=== PATIENT | female | born 1965 | race Two or more races ===

== ENCOUNTER → 2020-05-15 | Day surgery (SDC) | payer BC, MEDICARE ==
[~2020-05-15] VITALS: Ht 167.6 cm; Wt 75.7 kg
[~2020-05-15] MED LIST: CELL2 PO; DILT120T13 PO; FERR240T6 PO; HYDR25TA PO; HYDROMORPHONE HCL/PF 2MG/ML CPJ IV PRN; LABETALOL 5MG/ML SYR 20 MG/4 ML SYRINGE IV PRN; LOSA50TA41 PO; MAGN400C PO; MEPERIDINE HCL/PF 25MG/ML CPJ IV PRN; NORE-223 MT; ONDANSETRON HCL 4MG/2ML INJ IV PRN; PRED5TAB PO; PROT40 PO; SODIUM CHLORIDE 0.9% 1,000 ML IV SCH; TACR5CAP2 PO
[2020-05-15 09:31] LABS: HEMATOCRIT 29.3 % (36.0-48.0)
[2020-05-15 09:45] LABS: HCG SCREEN NEGATIVE
== END | disposition home or self-care (01) ==
LOC: OR 08:50
PROVIDERS: ATTEND Obstetrics & Gynecology
DX: D25.9 Leiomyoma of uterus, unspecified (principal); N92.1 Excessive and frequent menstruation with irregular cycle; R93.89 Abnormal findings on diagnostic imaging of other specified body structures; I12.0 Hypertensive chronic kidney disease with stage 5 chronic kidney disease or end stage renal disease; N18.4 Chronic kidney disease, stage 4 (severe); E78.5 Hyperlipidemia, unspecified; Z79.899 Other long term (current) drug therapy; Z98.890 Other specified postprocedural states
CPT/HCPCS: 36415; 58558; 84703; 85014; 85018; 86850; 86900; 86901; 88305; J7030

== ENCOUNTER → 2020-05-15 | Outpatient (CLI) | payer BC, MEDICARE ==
[~2020-05-15] MED LIST changes: +DEXAMETHASONE 4MG/ML 1ML VIAL ONE; +FENTANYL CITRATE/PF 50MCG/ML 2ML VIAL ONE; +GLYCOPYRROLATE 0.2 MG/ML 2ML VIAL ONE; -HYDROMORPHONE HCL/PF 2MG/ML CPJ IV PRN; -LABETALOL 5MG/ML SYR 20 MG/4 ML SYRINGE IV PRN; -MEPERIDINE HCL/PF 25MG/ML CPJ IV PRN; +MIDAZOLAM HCL 2 MG/2 ML VIAL ONE; +NEOSTIGMINE METHYLSULFATE 1MG/ML 10 ML VIAL ONE; -ONDANSETRON HCL 4MG/2ML INJ IV PRN; +ONDANSETRON HCL 4MG/2ML INJ ONE; +PROPOFOL 200MG/20ML VIAL IV ONE; +ROCURONIUM BROMIDE 10MG/ML VIAL 5ML IV ONE; -SODIUM CHLORIDE 0.9% 1,000 ML IV SCH
== END | disposition home or self-care (01) ==
LOC: LAB 07:58
PROVIDERS: ATTEND Obstetrics & Gynecology
DX: Z11.59 Encounter for screening for other viral diseases (principal); Z20.828 Contact with and (suspected) exposure to other viral communicable diseases; Z79.899 Other long term (current) drug therapy
CPT/HCPCS: 87426; J1100; J2250; J2405; J2704; J2710; J3010; J3490